=== PATIENT | female | born 1975 | race Two or more races ===

== ENCOUNTER 2025-01-31 10:00 | Inpatient (IN) | payer OTHER ==
[~2025-01-31] VITALS: Ht 152.4 cm; Wt 71.2 kg
[2025-01-31] MEDS ORDERED: VASOTEC20 M1 PO (13:39)
[2025-01-31] MEDS ORDERED: PEPCID AC10 MG PO (13:39)
[2025-01-31] MEDS ORDERED: PRILOSEC OTC20 MG PO (13:39)
[2025-01-31] MEDS ORDERED: SINGULAIR10 MG PO (13:40)
[2025-01-31] MEDS ORDERED: ZYRTEC10 M3 PO (13:40)
[2025-01-31] MEDS ORDERED: INTESTINEX680 M1 PO (13:40)
[2025-02-07] MEDS ORDERED: CEFTRIAXONE SODIUM 2,000 MG VIAL ONE (10:25)
[2025-02-07] MEDS ORDERED: METRONIDAZOLE/SODIUM CHLORIDE 500 MG/100 ML PIGGYBACK IV ONE ×2 (10:26→17:44)
[2025-02-07] MEDS ORDERED: SUGAMMADEX SODIUM 200 MG/2 ML VIAL IV ONE (15:10)
[2025-02-07] MEDS ORDERED: 0.9 % SODIUM CHLORIDE 1,000 ML IV SCH (15:15)
[2025-02-07] MEDS ORDERED: ONDANSETRON HCL 2 MG/ML VIAL IV PRN (15:15)
[2025-02-07] MEDS ORDERED: OxyCODONE HCL 5 MG TABLET (ROXICODONE) PO PRN (15:15)
[2025-02-07] MEDS ORDERED: MORPHINE SULFATE 4 MG/ML CARTRIDGE IV PRN (15:15)
[2025-02-07] MEDS ORDERED: MORPHINE SULFATE 4 MG/ML VIAL IV ONE ×3 (15:55→20:00)
[2025-02-07] MEDS ORDERED: HYOSCYAMINE SULFATE 0.125 MG TAB.SUBL SL SCH (17:00)
[2025-02-07] MEDS ORDERED: POLYETHYLENE GLYCOL 3350 17 GM BLIST.PACK PO SCH (17:00)
[2025-02-07] MEDS ORDERED: METRONIDAZOLE/SODIUM CHLORIDE 500 MG/100 ML PIGGYBACK IV SCH (17:00)
[2025-02-07] MEDS ORDERED: GABAPENTIN 300 MG CAPSULE PO SCH (17:00)
[2025-02-07] MEDS ORDERED: SIMETHICONE 125 MG CAPSULE PO SCH (17:00)
[2025-02-07] MEDS ORDERED: KETOROLAC TROMETHAMINE 30 MG VIAL ONE (17:03)
[2025-02-07] MEDS ORDERED: HYOSCYAMINE SULFATE 0.125 MG TAB.SUBL ONE (17:44)
[2025-02-07] MEDS ORDERED: GABAPENTIN 300 MG CAPSULE PO ONE (17:44)
[2025-02-07] MEDS ORDERED: SIMETHICONE 125 MG CAPSULE PO ONE (17:44)
[2025-02-07] MEDS ORDERED: ALBUTEROL SULFATE 3 ML/2.5 MG AMPUL.NEB IH SCH (18:00)
[2025-02-07] MEDS ORDERED: ACETAMINOPHEN 500 MG GEL..CAP PO SCH (20:00)
[2025-02-07 20:42] LABS: BASO % 0.3 % (0.1-1.2); EOS # 0.00 (0.04-0.54); EOS % 0.0 % (0.7-7.0); LYMPH # 1.33 (1.18-3.74); LYMPH % 7.1 % (19.3-53.1); MEAN PLATELET VOLUME 9.90 fl (9.4-12.4); MONO # 0.54 (0.24-0.82); MONO % 2.9 % (4.7-12.5); NEUT # 16.65 (1.56-6.13); NEUT % 89.3 % (34.0-71.1); RED CELL DISTRIBUTION WIDTH 14.4 % (11.6-14.4)
[2025-02-07] MEDS ORDERED: PATIENTS OWN MEDICATION (MEDICAMENTO EN PISO) PO SCH (21:00)
[2025-02-07] MEDS ORDERED: FAMOTIDINE/PF 20 MG/2 ML VIAL IV PUSH SCH (21:00)
[2025-02-07] MEDS ORDERED: CELECOXIB 200 MG CAPSULE PO SCH (21:00)
[2025-02-07] MEDS ORDERED: CIPROFLOXACIN IN 5 % DEXTROSE 400 MG/200 ML PIGGYBAG IV SCH (21:00)
[2025-02-07 21:13] VITALS: BP 151/92; O2SAT 98
[2025-02-08 01:27] VITALS: BP 133/80; O2SAT 100
[2025-02-08 06:32] LABS: BASO % 0.1 % (0.1-1.2); EOS # 0.00 (0.04-0.54); EOS % 0.0 % (0.7-7.0); LYMPH # 1.68 (1.18-3.74); LYMPH % 11.3 % (19.3-53.1); MEAN PLATELET VOLUME 10.50 fl (9.4-12.4); MONO # 0.75 (0.24-0.82); MONO % 5.0 % (4.7-12.5); NEUT # 12.38 (1.56-6.13); NEUT % 83.2 % (34.0-71.1); RED CELL DISTRIBUTION WIDTH 14.3 % (11.6-14.4)
[2025-02-08 07:07] LABS: BUN CREA RATIO 16.0 (7.0-25.0); CREATININE SERUM 0.5 mg/dL (0.55-1.02); GFR 131.13; GLUCOSE FASTING 97.0 mg/dL (65-100); OSMOLALITY SERUM 279.0 MOSM/KG (275-295)
[2025-02-08] MEDS ORDERED: LACTOBACILLUS ACIDOPHILUS 1 CAP CAP PO SCH (09:00)
[2025-02-08] MEDS ORDERED: ENALAPRIL MALEATE 20 MG TABLET PO SCH (09:00)
[2025-02-08] MEDS ORDERED: MAGNESIUM SULFATE IN WATER 50 ML IV NR (10:00)
[2025-02-08 16:00] VITALS: BP 100/60; O2SAT 95
[2025-02-08] MEDS ORDERED: ENOXAPARIN SODIUM 40 MG/0.4 ML SYRINGE SUBCUTANEO SCH (17:00)
[2025-02-09 00:43] VITALS: BP 102/67; O2SAT 100
[2025-02-09 08:00] VITALS: BP 99/62; O2SAT 95
[2025-02-09 08:23] LABS: BASO % 0.5 % (0.1-1.2); EOS # 0.02 (0.04-0.54); EOS % 0.2 % (0.7-7.0); LYMPH # 2.45 (1.18-3.74); LYMPH % 24.2 % (19.3-53.1); MEAN PLATELET VOLUME 10.40 fl (9.4-12.4); MONO # 0.57 (0.24-0.82); MONO % 5.6 % (4.7-12.5); NEUT # 7.00 (1.56-6.13); NEUT % 69.1 % (34.0-71.1); RED CELL DISTRIBUTION WIDTH 14.7 % (11.6-14.4)
[2025-02-09 08:56] LABS: BUN CREA RATIO 17.0 (7.0-25.0); CREATININE SERUM 0.42 mg/dL (0.55-1.02); GFR 160.36; GLUCOSE FASTING 92.0 mg/dL (65-100); OSMOLALITY SERUM 288.0 MOSM/KG (275-295)
[2025-02-09] MEDS ORDERED: ENOXAPARIN SODIUM 40 MG/0.4 ML SYRINGE SUBCUTANEO SCH (09:00)
[2025-02-09] MEDS ORDERED: IRON FUM,PS/FOLIC/BCOMP,C NO.9 1 CAP CAPSULE PO SCH (09:34)
[2025-02-09] MEDS ORDERED: Cyanocobalamin/Mecobalamin 1 TAB.SL SL SCH (09:34)
[2025-02-09] MEDS ORDERED: POTASSIUM PHOS,M-BASIC-D-BASIC 15 MM in 0.9 % SODIUM CHLORIDE 250 ML IV NR (09:45)
[2025-02-09 16:44] VITALS: BP 112/75; O2SAT 97
[2025-02-09] MEDS ORDERED: OxyCODONE HCL 5 MG TABLET (ROXICODONE) PO PRN (21:15)
[2025-02-10 01:24] VITALS: BP 121/77; O2SAT 99
[2025-02-10] MEDS ORDERED: TRAM1TAB98 PO (09:57)
[2025-02-10] MEDS ORDERED: NEURONTIN300 MG PO (09:57)
[2025-02-10] MEDS ORDERED: INTESTINEX680 M1 PO (09:57)
== END 2025-02-10 11:58 | disposition home or self-care (01) | DRG 331 ==
LOC: SURH 02-07 07:00 → O/R 02-07 10:21 → SURH 02-07 18:08
PROVIDERS: Internal Medicine Geriatric Medicine; ADMIT Surgery; ATTEND Surgery
PROC: 0DBP4ZZ Excision of Rectum, Percutaneous Endoscopic Approach (ICD-10-PCS; 2025-02-07)
PROC: 0DNW4ZZ Release Peritoneum, Percutaneous Endoscopic Approach (ICD-10-PCS; 2025-02-07)
PROC: 0UT14ZZ Resection of Left Ovary, Percutaneous Endoscopic Approach (ICD-10-PCS; 2025-02-07)
PROC: 0DJD8ZZ Inspection of Lower Intestinal Tract, Via Natural or Artificial Opening Endoscopic (ICD-10-PCS; 2025-02-07)
PROC: 0DTN4ZZ Resection of Sigmoid Colon, Percutaneous Endoscopic Approach (ICD-10-PCS; principal; 2025-02-07 07:00)
DX: K57.20 Diverticulitis of large intestine with perforation and abscess without bleeding (principal); N83.292 Other ovarian cyst, left side